=== PATIENT | female | born 1975 | race Caucasian/White ===

== ENCOUNTER 2016-05-18 08:09 | Emergency (ER) | payer OTHER ==
[2016-05-18 08:13] VITALS: BP 149/102; PULSE 97; TEMP 98; BMI 26.5
[2016-05-18] MEDS ORDERED: diazePAM 5 MG TABLET PO ONE (08:43)
[2016-05-18] MEDS ORDERED: KETOROLAC TROMETHAMINE 60 MG/2 ML VIAL IM ONE (08:43)
[2016-05-18] MEDS ORDERED: diazePAM 5 MG TABLET ONE (08:49)
[2016-05-18] MEDS ORDERED: KETOROLAC TROMETHAMINE 60 MG/2 ML VIAL ONE (08:49)
--- NOTE | 2016-05-18 08:54 | PDOC ---
History of Present Illness - General Chief Complaint: Pain Stated Complaint: PAIN/ LOWER BACK, LT LEG Time Seen by Provider: 05/18/16 08:20 History Source: Patient Exam Limitations: No Limitations - History of Present Illness Initial Comments: 05/18/16 08:50 Chief complaint: left Sided lower back pain radiates to left thigh History of present illness: Pt. is a 41-year-old female with no significant medical problems here today complaining of left-sided lower back pain that radiates to her left buttocks and down to her left lateral thigh. Patient denies any incontinency or any numbness of legs or any saddle anesthesia. Patient denies any previous issues with her back. Patient reports that 2 days ago her daughter who is 6 years old she, she was carrying on her back. Patient began to feel pain in her left lower back however today when she bent over to put on her shoes pain increased and started to radiate down her buttocks to her left thigh. 05/18/16 08:54 Occurred: reports: other (2 days) Pain Location: reports: back (left lower radiates to left thigh) Method of Injury: Yes: other (her 6 y/o daughter was on her back ) Modifying Factors: improves with: None Loss of Consciousness: no loss of consciousness Associated Symptoms (Fall): denies symptoms Past History - Past Medical History Allergies/Adverse Reactions: Allergies Allergy/AdvReac Type Severity Reaction Status Date / Time pineapple Allergy Hives Verified 05/18/16 08:13 Home Medications: Ambulatory Orders Cyclobenzaprine HCl [Flexeril -] 10 mg PO BID PRN #14 tablet MDD 2 05/18/16 Naproxen [Naprosyn -] 500 mg PO BID PRN #14 tablet MDD 2 05/18/16 Oxycodone HCl/Acetaminophen [Percocet 5-325 mg Tablet] 1 tab PO Q6H PRN #8 tablet MDD 4 05/18/16 Other medical history: DENIES - Psycho/Social/Smoking Cessation Hx Anxiety: No Suicidal Ideation: No Smoking History: Current every day smoker Number of Cigarettes Smoked Daily: 2 Information on smoking cessation initiated: No Hx Alcohol Use: Yes (SOCIAL) Drug/Substance Use Hx: No Substance Use Type: None Review of Systems - Review of Systems Able to Perform ROS?: Yes Constitutional: No: Symptoms Reported HEENTM: No: Symptoms Reported Respiratory: No: Symptoms reported Cardiac (ROS): No: Symptoms Reported ABD/GI: No: Symptoms Reported : No: Symptoms Reported Musculoskeletal: Yes: Back Pain (left sided lower back pain with radiation down left buttock to left lateral thigh ) Integumentary: No: Symptoms Reported Neurological: No: Symptoms reported *Physical Exam - Vital Signs Last Vital Signs Temp Pulse Resp BP Pulse Ox 98.0 F 97 H 20 149/102 100 05/18/16 08:10 05/18/16 08:10 05/18/16 08:10 05/18/16 08:10 05/18/16 08:10 - Physical Exam General Appearance: Yes: Appropriately Dressed Respiratory/Chest: positive: Lungs Clear, Normal Breath Sounds. negative: Chest Tender, Respiratory Distress Cardiovascular: positive: Regular Rhythm, Regular Rate, S1, S2 Musculoskeletal: positive: Normal Inspection, Decreased Range of Motion (from waist ), Muscle Spasm (left lower back ). negative: CVA Tenderness, CVA Tenderness (R), CVA Tenderness (L), Vertebral Tenderness Integumentary: positive: Normal Color Neurologic: positive: Normal Response, Motor Strength 5/5 (b/l legs ), Respond to painful stimul (legs ), Responsive. negative: Numbness, Sensory Deficit ( legs ) Medical Decision Making - Medical Decision Making 05/18/16 08:54 Pt. is a 41-year-old female with no significant medical problems here today complaining of left-sided lower back pain that radiates to her left buttocks and down to her left lateral thigh. Patient denies any incontinency or any numbness of legs or any saddle anesthesia. Patient denies any previous issues with her back. Patient reports that 2 days ago her daughter who is 6 years old she, she was carrying on her back. Patient began to feel pain in her left lower back however today when she bent over to put on her shoes pain increased and started to radiate down her buttocks to her left thigh. Left sided lower back pain with radiculopathy to left eye Plan: Toradol 60 mg IM now Valium 5 mg by mouth now xray lumbar sacral feels mild degenerative changes facet joints and degenerative changes of the left SI joint per Dr.Maldjian Jefferson follow up with ortho 05/18/16 10:33 pt. rt. lower back an 8 presently will give percocet 5mg/325mg po now than every 6 hrs prn severe pain # 9 tabs naprosyn 500 mg bid prn mild to moderate pain # 14 tabs flexeril 10 mg bid prn muscle spasm # 14 tabs 05/18/16 10:35 *DC/Admit/Observation/Transfer Diagnosis at time of Disposition: Low back pain radiating to left lower extremity - Discharge Dispostion Disposition: HOME Condition at time of disposition: Stable - Referrals Referrals: Bertrand Mack MD [Primary Care Provider] - Pranav Connor MD [Staff Physician] - - Patient Instructions Additional Instructions: Avoid any strenuous activities or exercise or lifting of heavy Of objects Follow-up with orthopedist as soon as possible for further evaluation Return to emergency room if any numbness of legs or groin or any incontinency Patient voiced understanding of discharge instructions and all questions were answered
[2016-05-18] MEDS ORDERED: OXYCODONE/APAP 5/325MG COMBO TABLET PO ONE (10:17)
[2016-05-18] MEDS ORDERED: OXYCODONE/APAP 5/325MG COMBO TABLET ONE (10:26)
== END 2016-05-18 10:50 | disposition home or self-care (01) ==
LOC: JERFT 08:09
PROC: 3E0233Z Introduction of Anti-inflammatory into Muscle, Percutaneous Approach (ICD-10-PCS; principal; 2016-05-18)
DX: M54.5 Low back pain (principal); M79.605 Pain in left leg; Z72.0 Tobacco use
CPT/HCPCS: 72100-TC; 99281-25

== ENCOUNTER 2019-12-02 11:17 | Emergency (ER) | payer OTHER ==
--- NOTE | 2019-12-02 11:32 | PDOC ---
Rapid Medical Evaluation Time Seen by Provider: 12/02/19 11:31 Medical Evaluation: Allergies Allergy/AdvReac Type Severity Reaction Status Date / Time pineapple Allergy Hives Verified 05/18/16 08:13 12/02/19 11:31 I have performed a brief in-person evaluation of this patient. The patient presents with a chief complaint of:L knee pain after sports injury today Pertinent physical exam findings:swelling to L knee, sitting in W/C at triage I have ordered the following:xray The patient will proceed to the ED for further evaluation. Discharge Disposition - Diagnosis Knee injury Qualifiers: Encounter type: initial encounter Laterality: left Qualified Code(s): S89.92XA - Unspecified injury of left lower leg, initial encounter - Referrals - Patient Instructions - Post Discharge Activity
[2019-12-02 11:35] VITALS: BP 131/87; PULSE 109; BMI 31.6
--- NOTE | 2019-12-02 12:09 | PDOC ---
History of Present Illness - General Chief Complaint: Injury Stated Complaint: LT KNEE INJURY Time Seen by Provider: 12/02/19 11:31 - History of Present Illness Initial Comments: 12/02/19 12:05 44-year-old female without comorbidities presents for evaluation of left knee pain. Patient describes a twisting type injury while playing volleyball. No prior problems with the left knee. Past History - Medical History Allergies/Adverse Reactions: Allergies Allergy/AdvReac Type Severity Reaction Status Date / Time pineapple Allergy Hives Verified 12/02/19 11:32 Home Medications: Ambulatory Orders NK [No Known Home Medication] 12/02/19 COPD: No - Reproductive History Is Patient Now?: No - Psycho-Social/Smoking History Smoking History: Never smoked Number of Cigarettes Smoked Daily: 2 - Substance Abuse Hx (Audit-C & DAST Scrn) How often the patient has a drink containing alcohol: Monthly or less Score: In Men: 4 or > Positive; In Women: 3 or > Positive: 1 Screen Result (Pos requires Nsg. Audit-10AR): Negative In the last yr the pt used illegal drug/Rx for NonMed reason: No Score: Yes response is considered Positive: 0 Screen Result (Positive result requires Nsg. DAST-10): Negative Review of Systems - Review of Systems Musculoskeletal: Yes: Joint Pain *Physical Exam - Vital Signs Last Vital Signs Temp Pulse Resp BP Pulse Ox 109 H 18 131/87 99 12/02/19 11:33 12/02/19 11:33 12/02/19 11:33 12/02/19 11:33 - Physical Exam 12/02/19 12:06 Left knee skin color and temperature normal. There is a small intra-articular effusion. Range of motion 0-90 beyond that causes pain. She resist stability testing she has no areas of tenderness thigh and calf are soft and nontender normal range of motion of the hip and ankle neurovascular intact. Medical Decision Making - Medical Decision Making 12/02/19 12:06 X-ray show no evidence of fracture trauma or destructive process. Mechanism consistent with ACL rupture. She has a prior ACL rupture in the contralateral knee. Weight-bear as tolerated tolerated with knee immobilizer follow-up with orthopedic surgery remove knee immobilizer for gentle range of motion I have reviewed the pathophysiology with the patient. They are in agreement with the treatment plan all questions were answered to their satisfaction. Understanding for follow-up without fail was also conveyed to the patient. Again they are in agreement. Discharge - Discharge Information Problems reviewed: Yes Clinical Impression/Diagnosis: Knee injury Qualifiers: Encounter type: initial encounter Laterality: left Qualified Code(s): S89.92XA - Unspecified injury of left lower leg, initial encounter Condition: Stable Disposition: HOME - Admission No - Follow up/Referral Referrals: Bertrand Mack MD [Primary Care Provider] - Earl Gonzalez DO [Staff Physician] - - Patient Discharge Instructions - Post Discharge Activity Work/Back to School Note: Back to Work
== END 2019-12-02 12:15 | disposition home or self-care (01) ==
LOC: JERFT 11:17
DX: S89.92XA Unspecified injury of left lower leg, initial encounter (principal)
CPT/HCPCS: 73560-TC-LT-FY; 99283-25